=== PATIENT | female | born 1975 | race Caucasian/White ===

== ENCOUNTER 2017-12-15 13:36 | Emergency (ER) | payer BC ==
[~2017-12-15] VITALS: Ht 160 cm; Wt 53.3 kg
[~2017-12-15 13:36] MED LIST: COLACE100 MG PO; ULTRAM50 MG PO
[2017-12-15 14:21] LABS: HEMATOCRIT 42.1 % (36.0-46.0); HEMOGLOBIN 14.7 G/DL (11.9-15.5); MCH 32.9 PG (29.0-34.0); MCHC 34.9 G/DL (30.0-36.0); MCV 94.2 FL (83-99); PLATELET COUNT 269 K/uL (156-360); RBC DIS.WIDTH-CV 12.2 % (11.8-14.6); RBC DIS.WIDTH-SD 42.8 % (39-53); RED BLOOD COUNT 4.47 M/uL (3.80-5.20); WHITE BLOOD COUNT 7.2 K/uL (4.1-10.2)
[2017-12-15 14:32] LABS: CHLORIDE 107 mEq/L (99-109); POTASSIUM 3.6 mEq/L (3.7-5.4); SODIUM 140 mEq/L (136-147)
[2017-12-15 14:34] LABS: GLUCOSE 97 mg/dL (70-99)
[2017-12-15 14:38] LABS: CREATININE 0.9 mg/dL (0.6-1.3); GFR ESTIMATE (CALCULATED) > 59 mL/min/
[2017-12-15 14:39] LABS: UREA NITROGEN (BUN) 11 mg/dL (9-23)
[2017-12-15 15:24] LABS: QUANTITATIVE HCG < 4.0 MIU/ML
[2017-12-15 16:00] LABS: APPEARANCE SL.HAZY ((CLEAR)); BILIRUBIN NEGATIVE; BLOOD NEGATIVE; COLOR YELLOW ((YELLOW)); GLUCOSE (STRIP) NEGATIVE; KETONES NEGATIVE; LEUKOCYTES NEGATIVE; NITRITE NEGATIVE; PROTEIN (STRIP) NEGATIVE; SPECIFIC GRAVITY 1.015 (1.000-1.030); UROBILINOGEN 0.2 MG/DL (0.2-1.0)
[2017-12-15 16:07] LABS: BACTERIA 2+ /HPF; EPITHELIAL CELLS 1+ /HPF; MUCUS TRACE /LPF; RED BLOOD CELLS 0-5 /HPF (0-5); UCUL ADDED? YES; WHITE BLOOD CELLS 0-5 /HPF (0-5)
[2017-12-15] MEDS ORDERED: FIORICET 50-301 EAC1 PO (17:19)
[2017-12-15] MEDS ORDERED: REGLAN10 MG PO (17:19)
[2017-12-15 17:33] VITALS: BP 140/70
== END 2017-12-15 17:33 | disposition home or self-care (01) ==
LOC: EME 13:36
PROVIDERS: Physician Assistant
DX: R55 Syncope and collapse (principal); Z87.891 Personal history of nicotine dependence
CPT/HCPCS: 70450; 71046; 80048; 81003; 84702; 85027; 87086; 93005; 99281; 99284; J1885; J2765; J7030